=== PATIENT | female | born 1935 | race African-American/Black ===

== ENCOUNTER 2024-11-14 12:57 | Emergency (ER) | payer OTHER ==
[~2024-11-14] VITALS: Ht 162.6 cm; Wt 80.0 kg
[2024-11-14 12:58] VITALS: O2SAT 99
[2024-11-14] MEDS ORDERED: ACETAMINOPHEN 325MG TABLET PO STA (13:05)
[2024-11-14] MEDS ORDERED: HYDRALAZINE 20MG/ML VIAL IV ONE (13:30)
[2024-11-14 15:07] VITALS: TEMP 36.66960
[2024-11-14] MEDS: ACETAMINOPHEN 325MG TABLET PO NR (15:18)
[2024-11-14] MEDS: HYDRALAZINE 20MG/ML VIAL IV NR (15:18)
[2024-11-14] MEDS: HYDRALAZINE 20MG/ML VIAL ONE (15:19)
[2024-11-14] MEDS: ACETAMINOPHEN 325MG TABLET ONE (15:19)
[2024-11-14 15:23] LABS: BASOPHILS % 0.7 % (0.0-2.0); EOSINOPHILS % 2.5 % (0.0-5.0); HEMATOCRIT. 38.8 % (36.0-48.0); HEMOGLOBIN. 12.5 g/dL (12.0-16.0); LYMPHOCYTES % 41.8 % (20.0-50.0); MEAN CORPUSCULAR HEMOGLOBIN 29.7 pg (28.0-32.0); MEAN CORPUSCULAR HGB CONC 32.1 g/dL (31.0-37.0); MEAN CORPUSCULAR VOLUME 92.6 fL (81.0-99.0); MEAN PLATELET VOLUME 9.2 fl (7.4-10.4); MONOCYTES % 7.8 % (2.0-8.0); NEUTROPHILS % 47.2 % (40.0-76.0); PLATELET 219 x1000/uL (130-400); RED BLOOD CELL COUNT 4.19 mill/uL (4.2-5.4); RED CELL DISTRIBUTION WIDTH 15.5 % (11.6-14.6); WHITE BLOOD COUNT 4.6 x1000/uL (4.5-11.0)
[2024-11-14 15:28] LABS: CHLORIDE 107 mEq/L (98-107); POTASSIUM 4.7 mEq/L (3.5-5.1); SODIUM 142 mEq/L (136-145)
[2024-11-14 15:29] LABS: CALCIUM 8.9 mg/dL (8.7-10.4); CARBON DIOXIDE 29 mEq/L (21-32)
[2024-11-14 15:34] LABS: CREATININE 0.6 mg/dL (0.6-1.0); GLUCOSE 98 mg/dL (70-105); UREA NITROGEN BLOOD 9 mg/dL (9-23)
[2024-11-14 15:36] LABS: TROPONIN I HIGH SENSITIVITY 9 ng/L (3.0-34)
[2024-11-14] MEDS: METOCLOPRAMIDE HCL 10MG TABLET PO ONE (16:10)
[2024-11-14] MEDS: KETOROLAC 30MG/ML VIAL IV ONE (16:10)
[2024-11-14 16:24] LABS: PROTHROMBIN TIME 11.4 sec (9.6-11.0)
[2024-11-14 17:58] VITALS: BP 170/74; PULSE 75; RESP 25; O2SAT 100
== END 2024-11-14 18:01 | disposition home or self-care (01) ==
LOC: ER 12:57
DX: I10 Essential (primary) hypertension (principal); Z88.0 Allergy status to penicillin; Z98.890 Other specified postprocedural states
CPT/HCPCS: 99285; 96374; 70450; 96375; 80048; 85025; 85610; 84484; 36415; 93005; J0360; J1885

== ENCOUNTER 2025-03-16 10:01 | Emergency (ER) | payer MEDICARE, OTHER ==
[~2025-03-16] VITALS: Ht 157.5 cm; Wt 82.0 kg
[2025-03-16 10:03] VITALS: O2SAT 95
[2025-03-16 10:52] LABS: BASOPHILS % 0.7 % (0.0-2.0); EOSINOPHILS % 1.3 % (0.0-5.0); HEMOGLOBIN. 12.7 g/dL (12.0-16.0); LYMPHOCYTES % 31.6 % (20.0-50.0); MEAN CORPUSCULAR HEMOGLOBIN 30.8 pg (28.0-32.0); MEAN CORPUSCULAR HGB CONC 33.3 g/dL (31.0-37.0); MEAN CORPUSCULAR VOLUME 92.5 fL (81.0-99.0); MEAN PLATELET VOLUME 9.2 fl (7.4-10.4); MONOCYTES % 7.6 % (2.0-8.0); NEUTROPHILS % 58.8 % (40.0-76.0); PLATELET 240 x1000/uL (130-400); RED BLOOD CELL COUNT 4.11 mill/uL (4.2-5.4); WHITE BLOOD COUNT 4.1 x1000/uL (4.5-11.0)
[2025-03-16 11:06] LABS: CHLORIDE 102 mEq/L (98-107); POTASSIUM 3.7 mEq/L (3.5-5.1); SODIUM 138 mEq/L (136-145)
[2025-03-16 11:07] LABS: CALCIUM 9.3 mg/dL (8.7-10.4); CARBON DIOXIDE 28 mEq/L (21-32)
[2025-03-16 11:12] LABS: CREATININE 0.7 mg/dL (0.6-1.0); GLUCOSE 128 mg/dL (70-105); UREA NITROGEN BLOOD 12 mg/dL (9-23)
[2025-03-16 11:13] LABS: TROPONIN I HIGH SENSITIVITY 6 ng/L (3.0-34)
[2025-03-16 12:31] VITALS: BP 145/55; PULSE 62; RESP 18; TEMP 36.5; O2SAT 97
== END 2025-03-16 12:32 | disposition home or self-care (01) ==
LOC: ER 10:01
DX: R53.1 Weakness (principal); I10 Essential (primary) hypertension; E11.9 Type 2 diabetes mellitus without complications; Z88.0 Allergy status to penicillin; Z88.6 Allergy status to analgesic agent
CPT/HCPCS: 36415; 71045; 80048; 84484; 85025; 93005; 99285